=== PATIENT | female | born 2000 | race Caucasian/White ===

== ENCOUNTER 2022-02-08 21:02 | Emergency (ER) | payer OTHER ==
[~2022-02-08] VITALS: Ht 160 cm; Wt 65.9 kg
[2022-02-08 22:14] LABS: Basophils # (auto) 0 10 ^3/uL (0-0.2); Basophils % (auto) 0.3 % (0.0-2.0); Eosinophils # (auto) 0.1 10 ^3/uL (0-0.8); Red Cell Distribution Width 15.9 % (11.8-14.3)
[2022-02-08 22:16] LABS: Eosinophils % (auto) 1.2 % (0.0-7.0); Hematocrit 34.3 % (36.0-46.0); Mean Corpuscular Hemoglobin 26.4 pg (28.0-32.0); Mean Corpuscular Hgb Conc. 32.1 g/dL (32.0-36.0); Mean Corpuscular Volume 82.3 fL (80.0-100.0); Monocytes # (auto) 0.7 10 ^3/uL (0-1.3); Monocytes % (auto) 7.5 % (0.0-12.0); Neutrophils # (auto) 5.3 10 ^3/uL (1.6-8.6); Red Blood Cells 4.17 10^6/uL (4.0-5.20); White Blood Cell 9.1 10^3/uL (4.4-10.8)
[2022-02-08 22:34] LABS: Albumin 3.4 g/dL (3.4-5.0); Calcium 8.6 mg/dL (8.5-10.1); Potassium 3.6 mmol/L (3.5-5.1)
[2022-02-08 22:37] LABS: Bilirubin, Total 0.1 mg/dL (0.2-1.0); Total Protein 7.1 g/dL (6.4-8.2)
[2022-02-08 22:38] LABS: Urine Bacteria NONE SEEN /hpf (None Seen); Urine Blood Negative /uL (Negative); Urine Mucus FEW (None Seen); Urine Specific Gravity 1.022 (1.001-1.035); Urine WBC 2 /hpf (0 - 5)
[2022-02-08 22:41] LABS: INR 0.89 (0.9-1.15); Partial Thromboplastin Time 22.3 sec (24.6-33.4)
[2022-02-09 01:50] VITALS: BP 93/50
== END 2022-02-09 01:57 | disposition home or self-care (01) ==
LOC: ER 21:02
DX: O20.0 Threatened abortion (principal); Z3A.19 19 weeks gestation of pregnancy
CPT/HCPCS: 36415; 76805; 80053; 81001; 84702; 85025; 85610; 85730; 86850; 86900; 86901